=== PATIENT | male | born 1980 | race Caucasian/White ===

== ENCOUNTER 2018-04-14 18:22 | Inpatient (IN) | payer OTHER ==
[2018-04-14 18:40] VITALS: BMI 24.4
--- NOTE | 2018-04-14 19:27 | C.PDOC ---
History Of Present Illness 37 y/o male brought to ED after he went to Dr. Wallace for feeling palpitations and was found to be in rapid Afib 140 -180 bpm. Patient was administered 20mg Cardizem IV by paramedics. Denies fever, chills, nausea, or vomiting. Time Seen by Provider: 04/14/18 19:26 Chief Complaint (Nursing): Palpitations History Per: Patient History/Exam Limitations: no limitations Onset/Duration Of Symptoms: Hrs Current Symptoms Are (Timing): Still Present Associated Symptoms: Dizziness. denies: Chest Pain Quality Of Symptoms: Irregular Heart Rate Severity: Moderate Pain Scale Rating Of: 4 Exacerbating Factor(s): Pos: None Recent travel outside of the [place]: No Additional History Per: Patient Past Medical History Reviewed: Historical Data, Nursing Documentation, Vital Signs Vital Signs: Last Vital Signs Temp 98.2 F 04/14/18 18:25 Pulse 96 H 04/14/18 18:25 Resp 18 04/14/18 18:25 BP 114/72 04/14/18 18:25 Pulse Ox 100 04/14/18 19:49 - Medical History PMH: No Chronic Diseases Surgical History: Appendectomy ("when i was 19") Family History: States: No Known Family Hx - Social History Hx Alcohol Use: No Hx Substance Use: Yes - Immunization History Hx Tetanus Toxoid Vaccination: No Hx Influenza Vaccination: No Hx Pneumococcal Vaccination: No Review Of Systems Constitutional: Negative for: Fever, Chills ENT: Negative for: Throat Pain Cardiovascular: Positive for: Palpitations. Negative for: Chest Pain Respiratory: Negative for: Shortness of Breath Gastrointestinal: Negative for: Nausea, Vomiting, Abdominal Pain, Diarrhea Skin: Negative for: Rash Neurological: Negative for: Weakness, Numbness Psych: Negative for: Anxiety Physical Exam - Physical Exam Appears: Non-toxic, No Acute Distress Skin: Warm, Dry Head: Normacephalic Eye(s): bilateral: Normal Inspection Oral Mucosa: Moist Neck: Trachea Midline, Supple Chest: Symmetrical Respiratory: No Rales, No Rhonchi, No Wheezing Gastrointestinal/Abdominal: Soft, No Tenderness, No Distention Back: Normal Inspection Extremity: Normal ROM, No Pedal Edema Extremity: Bilateral: Atraumatic, Normal Color And Temperature, Normal ROM Pulses: Left Dorsalis Pedis: Normal, Right Dorsalis Pedis: Normal Neurological/Psych: Oriented x3, Normal Speech (Speaking in full sentences ), Normal Cognition Gait: Steady ED Course And Treatment - Laboratory Results Result Diagrams: 04/14/18 19:20 04/14/18 19:20 O2 Sat by Pulse Oximetry: 100 (RA) Pulse Ox Interpretation: Normal Progress Note: Ordered EKG, bloodwork, CXR, and Urinalysis. Disposition Discussed With Dr.: Tone Guillermo Comment: acceptd the pt on hisservice and took over the care at 8:22 PM Doctor Will See Patient In The: Hospital Counseled Patient/Family Regarding: Studies Performed, Diagnosis - Disposition Disposition: HOSPITALIZED Disposition Time: 19:27 Condition: FAIR Forms: [facility] (Italian) - POA Present On Arrival: None - Clinical Impression Clinical Impression: Palpitations, New onset a-fib - Scribe Statement The provider has reviewed the documentation as recorded by the Scribe Mendez Molina All medical record entries made by the Scribe were at my direction and personally dictated by me. I have reviewed the chart and agree that the record accurately reflects my personal performance of the history, physical exam, medical decision making, and the department course for this patient. I have also personally directed, reviewed, and agree with the discharge instructions and disposition. Decision To Admit - Pt Status Changed To: Hospital Disposition Of: Inpatient - Admit Certification Admit to Inpatient:: After my assessment, the patient will require hospitalization for at least two midnights. This is because of the severity of symptoms shown, intensity of services needed, and/or the medical risk in this patient being treated as an outpatient. - InPatient: Physician Admission Certification: I certify that this patient requires 2 or more midnights of care for the following reason:: After my assessment, the patient will require hospitalization for at least two midnights. This is because of the severity of symptoms shown, intensity of services needed, and/or the medical risk in this patient being treated as an outpatient. - . Bed Request Type: Telemetry Admitting Physician: Tone Guillermo Patient Diagnosis: Palpitations, New onset a-fib
[2018-04-14 19:37] LABS: BASO % 0.5 % (0.0-2.0); EOS % 0.7 % (0.0-4.0); HEMOGLOBIN 14.7 g/dL (12.0-18.0); LYMPH # 2.7 K/uL (1.0-4.3); LYMPH % 40.4 % (20.0-40.0); MEAN CELL VOLUME 84.6 fL (80.0-94.0); MEAN CORPUSCULAR HEMOGLOBIN 29.1 pg (27.0-31.0); MEAN CORPUSCULAR HGB CONC 34.4 g/dL (33.0-37.0); MEAN PLATELET VOLUME 8.5 fL (7.2-11.7); MONO # 0.6 K/uL (0.0-0.8); MONO % 8.8 % (0.0-10.0); NEUT # 3.3 K/uL (1.8-7.0); NEUT % 49.6 % (50.0-75.0); NRBC % 0.2 % (0.0-2.0); RBC 5.06 Mil/uL (4.40-5.90); RED CELL DISTRIBUTION WIDTH 14.4 % (11.5-14.5); WHITE BLOOD COUNT 6.7 K/uL (4.8-10.8)
[2018-04-14 19:41] LABS: INR 1.2; PROTHROMBIN TIME 13.1 SECONDS (9.7-12.2)
[2018-04-14 19:48] LABS: SQUAMOUS EPITHIAL < 1 /hpf (0-5); URINE BILIRUBIN NEGATIVE (NEGATIVE); URINE BLOOD NEGATIVE (NEGATIVE); URINE CLARITY Clear (Clear); URINE COLOR Yellow (YELLOW); URINE GLUCOSE (UA) NORMAL (Normal); URINE LEUKOCYTE ESTERASE NEG Leu/uL (Negative); URINE PROTEIN NEGATIVE (NEGATIVE); URINE UROBILINOGEN NORMAL mg/dL (0.2-1.0)
[2018-04-14] MEDS ORDERED: Enoxaparin 40 mg Syringe SC STA (19:48)
[2018-04-14 19:49] LABS: ALB/GLOB RATIO 1.6 (1.0-2.1); ALBUMIN 4.4 g/dL (3.5-5.0); ALT/SGPT 23 U/L (21-72); AST/SGOT 22 U/L (17-59); BLOOD UREA NITROGEN 13 mg/dL (9-20); CALCIUM 9.1 mg/dl (8.6-10.4); GFR AFRICAN-AMERICAN > 60; GFR NON-AFRICAN AMERICAN > 60
[2018-04-14 20:00] LABS: CK-MB 2.03 ng/mL (0.0-3.38)
[2018-04-14] MEDS ORDERED: Enoxaparin 80 mg Syringe ONE (20:19)
[2018-04-14 20:40] LABS: BARBITURATES, UR NEGATIVE (NEGATIVE); BENZODIAZEPINES, UR NEGATIVE (NEGATIVE); OPIATES, UR NEGATIVE (NEGATIVE); PHENCYCLIDINE, UR NEGATIVE (NEGATIVE)
--- NOTE | 2018-04-14 21:09 | CP.PCM.HP ---
Present on Admission - Present on Admission Any Indicators Present on Admission: No Past Patient History - Past Social History Smoking Status: Light Smoker < 10 Cigarettes Daily - GASTROINTESTINAL Other/Comment: "i have gastric issues but i take over the counter meds for it " - PSYCHIATRIC Hx Substance Use: Yes - SURGICAL HISTORY Hx Appendectomy: Yes ("when i was 19") Meds Allergies/Adverse Reactions: Allergies Allergy/AdvReac Type Severity Reaction Status Date / Time Penicillins Allergy Verified 04/14/18 18:35 Physical Exam - Constitutional Appears: Well - Head Exam Head Exam: ATRAUMATIC, NORMAL INSPECTION, NORMOCEPHALIC - Eye Exam Eye Exam: EOMI, Normal appearance, PERRL Pupil Exam: NORMAL ACCOMODATION, PERRL - ENT Exam ENT Exam: Mucous Membranes Moist, Normal Exam - Neck Exam Neck exam: Positive for: Normal Inspection - Respiratory Exam Respiratory Exam: Decreased Breath Sounds - Cardiovascular Exam Cardiovascular Exam: REGULAR RHYTHM, +S1, +S2 - GI/Abdominal Exam GI & Abdominal Exam: Diminished Bowel Sounds, Soft - Rectal Exam Rectal Exam: Deferred Results - Vital Signs Recent Vital Signs: Last Vital Signs Temp 98.2 F 04/14/18 18:25 Pulse 122 H 04/14/18 20:15 Resp 24 04/14/18 20:15 BP 114/72 04/14/18 18:25 Pulse Ox 100 04/14/18 20:26 - Labs Result Diagrams: 04/15/18 10:16 04/15/18 10:16 Labs: Laboratory Results - last 24 hr 04/14/18 04/14/18 04/14/18 19:20 19:20 19:20 WBC 6.7 RBC 5.06 Hgb 14.7 Hct 42.8 MCV 84.6 MCH 29.1 MCHC 34.4 RDW 14.4 Plt Count 209 MPV 8.5 Neut % (Auto) 49.6 L Lymph % (Auto) 40.4 H [place] % (Auto) 8.8 Eos % (Auto) 0.7 Baso % (Auto) 0.5 Neut # (Auto) 3.3 Lymph # (Auto) 2.7 [place] # (Auto) 0.6 Eos # (Auto) 0.0 Baso # (Auto) 0.0 PT 13.1 H INR 1.2 APTT 35 H Sodium 141 Potassium 3.8 Chloride 104 Carbon Dioxide 27 Anion Gap 14 BUN 13 Creatinine 1.1 Est GFR ( Amer) > 60 Est GFR (Non-Af Amer) > 60 Random Glucose 89 Calcium 9.1 Total Bilirubin 1.0 AST 22 ALT 23 Alkaline Phosphatase 43 CK-MB (Mass) 2.03 Troponin I < 0.0120 Total Protein 7.2 Albumin 4.4 Globulin 2.8 Albumin/Globulin Ratio 1.6 TSH 3rd Generation 1.12 Urine Color Urine Clarity Urine pH Ur Specific [place] Urine Protein Urine Glucose (UA) Urine Ketones Urine Blood Urine Nitrate Urine Bilirubin Urine Urobilinogen Ur Leukocyte Esterase Urine WBC (Auto) Urine RBC (Auto) Ur Squamous Epith Cells Urine Opiates Screen Urine Methadone Screen Ur Barbiturates Screen Ur Phencyclidine Scrn Ur Amphetamines Screen U Benzodiazepines Scrn U Oth Cocaine Metabols U Cannabinoids Screen 04/14/18 04/14/18 19:42 20:11 WBC RBC Hgb Hct MCV MCH MCHC RDW Plt Count MPV Neut % (Auto) Lymph % (Auto) [place] % (Auto) Eos % (Auto) Baso % (Auto) Neut # (Auto) Lymph # (Auto) [place] # (Auto) Eos # (Auto) Baso # (Auto) PT INR APTT Sodium Potassium Chloride Carbon Dioxide Anion Gap BUN Creatinine Est GFR ( Amer) Est GFR (Non-Af Amer) Random Glucose Calcium Total Bilirubin AST ALT Alkaline Phosphatase CK-MB (Mass) Troponin I Total Protein Albumin Globulin Albumin/Globulin Ratio TSH 3rd Generation Urine Color Yellow Urine Clarity Clear Urine pH 6.0 Ur Specific [place] 1.013 Urine Protein Negative Urine Glucose (UA) Normal Urine Ketones Negative Urine Blood Negative Urine Nitrate Negative Urine Bilirubin Negative Urine Urobilinogen Normal Ur Leukocyte Esterase Neg Urine WBC (Auto) < 1 Urine RBC (Auto) < 1 Ur Squamous Epith Cells < 1 Urine Opiates Screen Negative Urine Methadone Screen Negative Ur Barbiturates Screen Negative Ur Phencyclidine Scrn Negative Ur Amphetamines Screen Positive H U Benzodiazepines Scrn Negative U Oth Cocaine Metabols Negative U Cannabinoids Screen Negative Assessment & Plan - Assessment and Plan (Free Text) Plan: Patient has a atrial fibrillation and he engaged patient urine screen is positive for amphetamine Patient is on diltiazem The rate is controlled Follow-up with the cardiology No chest pain Patient is for ICU As ordered
[2018-04-14] MEDS: Aspirin 325 mg EC Tablets PO SCH (23:52)
[2018-04-15 03:58] LABS: CK-MB 1.51 ng/mL (0.0-3.38)
--- NOTE | 2018-04-15 07:38 | CP.PCM.PN ---
Subjective - Date & Time of Evaluation Date of Evaluation: 04/15/18 Time of Evaluation: 07:38 - Subjective Subjective: Internal Medicine Progress Note - Dr Jean Claude Guillermo Service Patient seen and examined at bedside. Per nursing no acute events overnight. Patient was sent to the ED from his PMD's office. Patient stated that he has been experiencing palpitations for the past 2 days which led him to see his PMD. He was found to be in Afib with RVR. Currently he states that the palpitations have improved. He reports feeling lethargic. Denies headaches, dizziness, cp, sob, abdominal pain, urinary symptoms. Objective - Vital Signs/Intake and Output Vital Signs (last 24 hours): Temp Pulse Resp BP Pulse Ox 98.0 F 85 18 92/54 L 97 04/15/18 03:29 04/15/18 07:01 04/15/18 07:01 04/15/18 07:01 04/15/18 07:01 - Medications Medications: Current Medications Aspirin (Ecotrin) 325 mg PO DAILY [facility] Last Admin: 04/14/18 23:52 Dose: 325 mg Diltiazem HCl (Cardizem) 30 mg PO Q6 [facility] Last Admin: 04/15/18 06:00 Dose: 30 mg Enoxaparin Sodium (Lovenox) 80 mg SC Q12 [facility] Metoprolol Tartrate (Lopressor) 25 mg PO BID [facility] Last Admin: 04/15/18 01:50 Dose: 25 mg Pantoprazole Sodium (Protonix Ec Tab) 40 mg PO DAILY [facility] - Labs Labs: 04/14/18 19:20 04/14/18 19:20 PT 13.1 SECONDS (9.7-12.2) H 04/14/18 19:20 INR 1.2 04/14/18 19:20 APTT 35 SECONDS (21-34) H 04/14/18 19:20 - Constitutional Appears: Non-toxic, No Acute Distress - Head Exam Head Exam: ATRAUMATIC, NORMAL INSPECTION, NORMOCEPHALIC - Eye Exam Eye Exam: EOMI, Normal appearance Pupil Exam: NORMAL ACCOMODATION - ENT Exam ENT Exam: Mucous Membranes Moist - Neck Exam Neck Exam: Full ROM - Respiratory Exam Respiratory Exam: Clear to Ausculation Bilateral, NORMAL BREATHING PATTERN. absent: Rales, Rhonchi, Wheezes - Cardiovascular Exam Cardiovascular Exam: Irregular Rhythm, +S1, +S2 - GI/Abdominal Exam GI & Abdominal Exam: Soft, Normal Bowel Sounds. absent: Guarding, Rigid, Tenderness - Rectal Exam Rectal Exam: Deferred - Extremities Exam Extremities Exam: Full ROM, Normal Capillary Refill, Normal Inspection. absent : Calf Tenderness, Tenderness - Back Exam Back Exam: NORMAL INSPECTION - Neurological Exam Neurological Exam: Alert, Awake, CN II-XII Intact, Oriented x3 - Psychiatric Exam Psychiatric exam: Normal Affect, Normal Mood - Skin Skin Exam: Dry, Normal Color, Warm Assessment and Plan - Assessment and Plan (Free Text) Assessment: A/P: Patient is a 37 year old male with no significant past medical history who presented to the ED in Afib with RVR. Paramedics gave him Cardizem 20mg IVP. Patient admitted to telemetry for observation, New Onset Afib with RVR -Stable, afebrile -Will monitor on telemetry -EKG this morning showed Afib, HR 94 -Metoprolol 50mg PO BID and Cardizem 30mg PO Q6H for rate control -Lovenox 80 mg SC Q12H -[id number] - 0 HASBLED - 0 -Continue ASA 325mg PO daily -Troponins negative x 2, third troponin pending -TSH was normal, f/u hgA1C, lipid panel -UTOX positive for amphetamines ( of note, patient states that he has been drinking Kratom tea for weight loss for 2 weeks, stopped 3 days ago) -Echocardiogram ordered, f/u results -Cardiology on consult, help appreciated GI/DVT ppx: -Protonix 40mg PO daily -Lovenox 80mg SC Q12H Plan discussed with Dr Eagle Lauren DO PGY-2
[2018-04-15] MEDS: Pantoprazole 40 mg EC Tab PO SCH (10:07)
[2018-04-15] MEDS: Aspirin 325 mg EC Tablets PO SCH (10:08)
[2018-04-15] MEDS: Enoxaparin 80 mg Syringe SC SCH ×2 (10:15→23:00)
[2018-04-15 10:34] LABS: BASO % 0.8 % (0.0-2.0); EOS # 0.1 K/uL (0.0-0.7); EOS % 1.2 % (0.0-4.0); LYMPH # 2.2 K/uL (1.0-4.3); LYMPH % 40.3 % (20.0-40.0); MEAN CELL VOLUME 83.1 fL (80.0-94.0); MEAN CORPUSCULAR HEMOGLOBIN 28.7 pg (27.0-31.0); MEAN CORPUSCULAR HGB CONC 34.5 g/dL (33.0-37.0); MEAN PLATELET VOLUME 9.1 fL (7.2-11.7); MONO # 0.5 K/uL (0.0-0.8); MONO % 9.8 % (0.0-10.0); NEUT # 2.6 K/uL (1.8-7.0); NEUT % 47.9 % (50.0-75.0); NRBC % 0.1 % (0.0-2.0); RBC 5.23 Mil/uL (4.40-5.90); RED CELL DISTRIBUTION WIDTH 13.9 % (11.5-14.5); WHITE BLOOD COUNT 5.5 K/uL (4.8-10.8)
[2018-04-15 10:47] LABS: LDL CHOLESTEROL 110 mg/dL (0-129)
[2018-04-15 10:48] LABS: ALB/GLOB RATIO 1.4 (1.0-2.1); ALT/SGPT 25 U/L (21-72); AST/SGOT 25 U/L (17-59); BLOOD UREA NITROGEN 12 mg/dL (9-20); CALCIUM 8.9 mg/dl (8.6-10.4); GFR AFRICAN-AMERICAN > 60; GFR NON-AFRICAN AMERICAN > 60; HDL CHOLESTEROL 22 mg/dL (30-70)
--- NOTE | 2018-04-15 11:37 | RAD ---
Date of service: 04/14/2018 PROCEDURE: CHEST RADIOGRAPH, 1 VIEW HISTORY: chest pain COMPARISON: None available. FINDINGS: LUNGS: Clear. PLEURA: No pneumothorax or pleural fluid seen. CARDIOVASCULAR: Normal. OSSEOUS STRUCTURES: No significant abnormalities. VISUALIZED UPPER ABDOMEN: Normal. OTHER FINDINGS: None. IMPRESSION: No active disease.
--- NOTE | 2018-04-15 11:53 | CP.PCM.PN ---
Subjective - Date & Time of Evaluation Date of Evaluation: 04/15/18 Time of Evaluation: 11:15 - Subjective Subjective: clinically same Objective - Vital Signs/Intake and Output Vital Signs (last 24 hours): Temp Pulse Resp BP Pulse Ox 98.0 F 103 H 20 102/72 98 04/15/18 03:29 04/15/18 10:03 04/15/18 10:03 04/15/18 10:07 04/15/18 10:03 - Medications Medications: Current Medications Aspirin (Ecotrin) 325 mg PO DAILY [facility] Last Admin: 04/15/18 10:08 Dose: 325 mg Diltiazem HCl (Cardizem) 30 mg PO Q6 [facility] Last Admin: 04/15/18 06:00 Dose: 30 mg Enoxaparin Sodium (Lovenox) 80 mg SC Q12 [facility] Last Admin: 04/15/18 10:15 Dose: 80 mg Metoprolol Tartrate (Lopressor) 25 mg PO BID [facility] Last Admin: 04/15/18 10:07 Dose: 25 mg Pantoprazole Sodium (Protonix Ec Tab) 40 mg PO DAILY [facility] Last Admin: 04/15/18 10:07 Dose: 40 mg - Labs Labs: 04/15/18 10:16 04/15/18 10:16 PT 13.1 SECONDS (9.7-12.2) H 04/14/18 19:20 INR 1.2 04/14/18 19:20 APTT 35 SECONDS (21-34) H 04/14/18 19:20 - Constitutional Appears: Well - Head Exam Head Exam: ATRAUMATIC, NORMAL INSPECTION, NORMOCEPHALIC - Eye Exam Eye Exam: EOMI, Normal appearance, PERRL Pupil Exam: NORMAL ACCOMODATION, PERRL - ENT Exam ENT Exam: Mucous Membranes Moist, Normal Exam - Neck Exam Neck Exam: Full ROM, Normal Inspection. absent: Lymphadenopathy - Respiratory Exam Respiratory Exam: Decreased Breath Sounds - Cardiovascular Exam Cardiovascular Exam: REGULAR RHYTHM, +S1, +S2 - GI/Abdominal Exam GI & Abdominal Exam: Soft, Diminished Bowel Sounds - Rectal Exam Rectal Exam: Deferred
--- NOTE | 2018-04-15 12:41 | CP.PCM.CON ---
History of Present Illness - History of Present Illness History of Present Illness: 37 y/o male brought to ED after he went to Dr. Wallace for feeling palpitations and was found to be in rapid Afib 140 -180 bpm. Patient was administered 20mg Cardizem IV by paramedics. Denies fever, chills, nausea, or vomiting. No Angina No clinical CHF Works as a [employer] 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 + amphetamine No other medical or surgical hx except mild GERD Review of Systems - Review of Systems All systems: reviewed and no additional remarkable complaints except Past Patient History - Past Medical History & Family History Past Medical History?: Yes - Past Social History Smoking Status: Current Some Days Smoker - MUSCULOSKELETAL/RHEUMATOLOGICAL Hx Falls: No - GASTROINTESTINAL Other/Comment: "i have gastric issues but i take over the counter meds for it " - PSYCHIATRIC Hx Substance Use: Yes - SURGICAL HISTORY Hx Appendectomy: Yes ("when i was 19") - ANESTHESIA Hx Anesthesia: Yes Hx Anesthesia Reactions: No Hx Malignant Hyperthermia: No Meds Allergies/Adverse Reactions: Allergies Allergy/AdvReac Type Severity Reaction Status Date / Time Penicillins Allergy Verified 04/14/18 18:35 - Medications Medications: Current Medications Aspirin (Ecotrin) 325 mg PO DAILY [facility] Last Admin: 04/15/18 10:08 Dose: 325 mg Diltiazem HCl (Cardizem) 30 mg PO Q6 [facility] Last Admin: 04/15/18 06:00 Dose: 30 mg Enoxaparin Sodium (Lovenox) 80 mg SC Q12 [facility] Last Admin: 04/15/18 10:15 Dose: 80 mg Metoprolol Tartrate (Lopressor) 25 mg PO BID [facility] Last Admin: 04/15/18 10:07 Dose: 25 mg Pantoprazole Sodium (Protonix Ec Tab) 40 mg PO DAILY [facility] Last Admin: 04/15/18 10:07 Dose: 40 mg Pneumococcal Polyvalent Vaccine (Pneumovax 23 Vaccine) 0.5 ml IM .ONCE ONE Stop: 04/18/18 10:01 Physical Exam - Constitutional Appears: Well - Head Exam Head Exam: ATRAUMATIC, NORMAL INSPECTION, NORMOCEPHALIC - Eye Exam Eye Exam: EOMI, Normal appearance, PERRL - ENT Exam ENT Exam: Mucous Membranes Moist, Normal Oropharynx - Neck Exam Neck exam: Positive for: Full Rom, Normal Inspection - Respiratory Exam Respiratory Exam: Clear to Auscultation Bilateral, NORMAL BREATHING PATTERN - Cardiovascular Exam Cardiovascular Exam: Irregular Rhythm, +S1, +S2. absent: +S4, Systolic Murmur - GI/Abdominal Exam GI & Abdominal Exam: Normal Bowel Sounds, Soft. absent: Tenderness - Extremities Exam Extremities exam: Positive for: calf tenderness. Negative for: normal inspection - Neurological Exam Neurological exam: Alert, Oriented x3 - Psychiatric Exam Psychiatric exam: Normal Affect, Normal Mood - Skin Skin Exam: Normal Color, Warm Results - Vital Signs Recent Vital Signs: Last Vital Signs Temp 98.0 F 04/15/18 03:29 Pulse 103 H 04/15/18 10:03 Resp 20 04/15/18 10:03 BP 102/72 04/15/18 10:07 Pulse Ox 98 04/15/18 10:03 - Labs Result Diagrams: 04/15/18 10:16 04/15/18 10:16 Labs: Laboratory Results - last 24 hr 04/14/18 04/14/18 04/14/18 19:20 19:20 19:20 WBC 6.7 RBC 5.06 Hgb 14.7 Hct 42.8 MCV 84.6 MCH 29.1 MCHC 34.4 RDW 14.4 Plt Count 209 MPV 8.5 Neut % (Auto) 49.6 L Lymph % (Auto) 40.4 H [place] % (Auto) 8.8 Eos % (Auto) 0.7 Baso % (Auto) 0.5 Neut # (Auto) 3.3 Lymph # (Auto) 2.7 [place] # (Auto) 0.6 Eos # (Auto) 0.0 Baso # (Auto) 0.0 PT 13.1 H INR 1.2 APTT 35 H Sodium 141 Potassium 3.8 Chloride 104 Carbon Dioxide 27 Anion Gap 14 BUN 13 Creatinine 1.1 Est GFR ( Amer) > 60 Est GFR (Non-Af Amer) > 60 Random Glucose 89 Hemoglobin A1c Calcium 9.1 Phosphorus Magnesium Total Bilirubin 1.0 AST 22 ALT 23 Alkaline Phosphatase 43 Total Creatine Kinase CK-MB (Mass) 2.03 Troponin I < 0.0120 Total Protein 7.2 Albumin 4.4 Globulin 2.8 Albumin/Globulin Ratio 1.6 Triglycerides Cholesterol LDL Cholesterol Direct HDL Cholesterol TSH 3rd Generation 1.12 Urine Color Urine Clarity Urine pH Ur Specific [place] Urine Protein Urine Glucose (UA) Urine Ketones Urine Blood Urine Nitrate Urine Bilirubin Urine Urobilinogen Ur Leukocyte Esterase Urine WBC (Auto) Urine RBC (Auto) Ur Squamous Epith Cells Urine Opiates Screen Urine Methadone Screen Ur Barbiturates Screen Ur Phencyclidine Scrn Ur Amphetamines Screen U Benzodiazepines Scrn U Oth Cocaine Metabols U Cannabinoids Screen 04/14/18 04/14/18 04/15/18 19:42 20:11 03:21 WBC RBC Hgb Hct MCV MCH MCHC RDW Plt Count MPV Neut % (Auto) Lymph % (Auto) [place] % (Auto) Eos % (Auto) Baso % (Auto) Neut # (Auto) Lymph # (Auto) [place] # (Auto) Eos # (Auto) Baso # (Auto) PT INR APTT Sodium Potassium Chloride Carbon Dioxide Anion Gap BUN Creatinine Est GFR ( Amer) Est GFR (Non-Af Amer) Random Glucose Hemoglobin A1c Calcium Phosphorus Magnesium Total Bilirubin AST ALT Alkaline Phosphatase Total Creatine Kinase 64 CK-MB (Mass) 1.51 Troponin I < 0.0120 Total Protein Albumin Globulin Albumin/Globulin Ratio Triglycerides Cholesterol LDL Cholesterol Direct HDL Cholesterol TSH 3rd Generation Urine Color Yellow Urine Clarity Clear Urine pH 6.0 Ur Specific [place] 1.013 Urine Protein Negative Urine Glucose (UA) Normal Urine Ketones Negative Urine Blood Negative Urine Nitrate Negative Urine Bilirubin Negative Urine Urobilinogen Normal Ur Leukocyte Esterase Neg Urine WBC (Auto) < 1 Urine RBC (Auto) < 1 Ur Squamous Epith Cells < 1 Urine Opiates Screen Negative Urine Methadone Screen Negative Ur Barbiturates Screen Negative Ur Phencyclidine Scrn Negative Ur Amphetamines Screen Positive H U Benzodiazepines Scrn Negative U Oth Cocaine Metabols Negative U Cannabinoids Screen Negative 04/15/18 04/15/18 04/15/18 10:16 10:16 10:16 WBC 5.5 RBC 5.23 Hgb 15.0 Hct 43.4 MCV 83.1 MCH 28.7 MCHC 34.5 RDW 13.9 Plt Count 229 MPV 9.1 Neut % (Auto) 47.9 L Lymph % (Auto) 40.3 H [place] % (Auto) 9.8 Eos % (Auto) 1.2 Baso % (Auto) 0.8 Neut # (Auto) 2.6 Lymph # (Auto) 2.2 [place] # (Auto) 0.5 Eos # (Auto) 0.1 Baso # (Auto) 0.0 PT INR APTT Sodium 140 Potassium 3.9 Chloride 105 Carbon Dioxide 22 Anion Gap 17 BUN 12 Creatinine 0.8 Est GFR ( Amer) > 60 Est GFR (Non-Af Amer) > 60 Random Glucose 118 H Hemoglobin A1c 5.2 Calcium 8.9 Phosphorus 2.9 Magnesium 2.0 Total Bilirubin 0.7 AST 25 ALT 25 Alkaline Phosphatase 33 L D Total Creatine Kinase CK-MB ([facility]) Troponin I Total Protein 6.9 Albumin 4.0 Globulin 2.9 Albumin/Globulin Ratio 1.4 Triglycerides 177 H Cholesterol 153 LDL Cholesterol Direct 110 HDL Cholesterol 22 L TSH 3rd Generation Urine Color Urine Clarity Urine pH Ur Specific [place] Urine Protein Urine Glucose (UA) Urine Ketones Urine Blood Urine Nitrate Urine Bilirubin Urine Urobilinogen Ur Leukocyte Esterase Urine WBC (Auto) Urine RBC (Auto) Ur Squamous Epith Cells Urine Opiates Screen Urine Methadone Screen Ur Barbiturates Screen Ur Phencyclidine Scrn Ur Amphetamines Screen U Benzodiazepines Scrn U Oth Cocaine Metabols U Cannabinoids Screen 04/15/18 11:50 WBC RBC Hgb Hct MCV MCH MCHC RDW Plt Count MPV Neut % (Auto) Lymph % (Auto) [place] % (Auto) Eos % (Auto) Baso % (Auto) Neut # (Auto) Lymph # (Auto) [place] # (Auto) Eos # (Auto) Baso # (Auto) PT INR APTT Sodium Potassium Chloride Carbon Dioxide Anion Gap BUN Creatinine Est GFR ( Amer) Est GFR (Non-Af Amer) Random Glucose Hemoglobin A1c Calcium Phosphorus Magnesium Total Bilirubin AST ALT Alkaline Phosphatase Total Creatine Kinase 57 CK-MB ([facility]) Troponin I < 0.0120 Total Protein Albumin Globulin Albumin/Globulin Ratio Triglycerides Cholesterol LDL Cholesterol Direct HDL Cholesterol TSH 3rd Generation Urine Color Urine Clarity Urine pH Ur Specific [place] Urine Protein Urine Glucose (UA) Urine Ketones Urine Blood Urine Nitrate Urine Bilirubin Urine Urobilinogen Ur Leukocyte Esterase Urine WBC (Auto) Urine RBC (Auto) Ur Squamous Epith Cells Urine Opiates Screen Urine Methadone Screen Ur Barbiturates Screen Ur Phencyclidine Scrn Ur Amphetamines Screen U Benzodiazepines Scrn U Oth Cocaine Metabols U Cannabinoids Screen Assessment & Plan - Assessment and Plan (Free Text) Assessment: Symptomatic palpitation AFIB recent onset ? triggered by dehydration/amphetamines Plan: 1. Checks TSH 2, cont cardizem, inc metoprolol to 50 BID 3. ASA 325 daily with GI prophylaxis 4. F/U echo. 5. Monitor in TELE
[2018-04-15 12:54] LABS: CK-MB 1.16 ng/mL (0.0-3.38)
--- NOTE | 2018-04-16 01:12 | CARD ---
APPROVED REPORT Date of service: 04/14/2018 EKG Measurement Heart [id number] <Conclusion> Atrial fibrillation Abnormal ECG
[2018-04-16 06:31] LABS: BASO % 0.6 % (0.0-2.0); EOS # 0.1 K/uL (0.0-0.7); EOS % 1.8 % (0.0-4.0); HEMOGLOBIN 14.9 g/dL (12.0-18.0); LYMPH # 3.8 K/uL (1.0-4.3); MEAN CELL VOLUME 83.4 fL (80.0-94.0); MEAN CORPUSCULAR HEMOGLOBIN 28.6 pg (27.0-31.0); MEAN CORPUSCULAR HGB CONC 34.3 g/dL (33.0-37.0); MEAN PLATELET VOLUME 9.2 fL (7.2-11.7); MONO # 0.7 K/uL (0.0-0.8); MONO % 8.7 % (0.0-10.0); NEUT # 3.1 K/uL (1.8-7.0); NEUT % 39.9 % (50.0-75.0); NRBC % 0.1 % (0.0-2.0); RBC 5.23 Mil/uL (4.40-5.90); RED CELL DISTRIBUTION WIDTH 13.9 % (11.5-14.5); WHITE BLOOD COUNT 7.7 K/uL (4.8-10.8)
[2018-04-16 06:54] LABS: LDL CHOLESTEROL 115 mg/dL (0-129)
[2018-04-16 06:55] LABS: ALB/GLOB RATIO 1.3 (1.0-2.1); ALBUMIN 3.5 g/dL (3.5-5.0); ALT/SGPT 27 U/L (21-72); AST/SGOT 16 U/L (17-59); BLOOD UREA NITROGEN 11 mg/dL (9-20); CALCIUM 8.3 mg/dl (8.6-10.4); GFR AFRICAN-AMERICAN > 60; GFR NON-AFRICAN AMERICAN > 60; HDL CHOLESTEROL 24 mg/dL (30-70)
[2018-04-16] MEDS ORDERED: Potassium Chloride 20 mEq ER Tab PO ONE (06:57)
--- NOTE | 2018-04-16 07:01 | CP.PCM.PN ---
Subjective - Date & Time of Evaluation Date of Evaluation: 04/16/18 Time of Evaluation: 07:00 - Subjective Subjective: Internal Medicine Progress Note - Dr Jean Claude Guillermo Service Patient seen and examined at bedside. Per nursing, no acute events overnight. Patient is resting comfortably. States that he feels increasing lethargic and dizzy. Tolerating diet. Palpitations improved. Denies headaches, cp, sob, abdominal pain, urinary symptoms. Objective - Vital Signs/Intake and Output Vital Signs (last 24 hours): Temp Pulse Resp BP Pulse Ox 98.5 F 103 H 20 107/62 97 04/16/18 04:00 04/16/18 04:02 04/16/18 04:02 04/16/18 04:02 04/16/18 04:02 Intake and Output: 04/16/18 04/16/18 06:59 18:59 Intake Total 720 Output Total 800 Balance -80 - Medications Medications: Current Medications Aspirin (Ecotrin) 325 mg PO DAILY [facility] Last Admin: 04/15/18 10:08 Dose: 325 mg Diltiazem HCl (Cardizem) 30 mg PO Q6 [facility] Last Admin: 04/16/18 05:30 Dose: 30 mg Enoxaparin Sodium (Lovenox) 80 mg SC Q12 [facility] Last Admin: 04/15/18 23:00 Dose: 80 mg Metoprolol Tartrate (Lopressor) 50 mg PO BID [facility] Last Admin: 04/15/18 17:19 Dose: 50 mg Pantoprazole Sodium (Protonix Ec Tab) 40 mg PO DAILY [facility] Last Admin: 04/15/18 10:07 Dose: 40 mg Pneumococcal Polyvalent Vaccine (Pneumovax 23 Vaccine) 0.5 ml IM .ONCE ONE Stop: 04/18/18 10:01 - Labs Labs: 04/16/18 06:24 04/16/18 06:24 PT 13.1 SECONDS (9.7-12.2) H 04/14/18 19:20 INR 1.2 04/14/18 19:20 APTT 35 SECONDS (21-34) H 04/14/18 19:20 - Additional Findings Additional findings: - Constitutional Appears: Non-toxic, No Acute Distress - Head Exam Head Exam: ATRAUMATIC, NORMAL INSPECTION, NORMOCEPHALIC - Eye Exam Eye Exam: EOMI, Normal appearance Pupil Exam: NORMAL ACCOMODATION - ENT Exam ENT Exam: Mucous Membranes Moist - Neck Exam Neck Exam: Full ROM - Respiratory Exam Respiratory Exam: Clear to Ausculation Bilateral, NORMAL BREATHING PATTERN. absent: Rales, Rhonchi, Wheezes - Cardiovascular Exam Cardiovascular Exam: Irregular Rhythm, +S1, +S2 - GI/Abdominal Exam GI & Abdominal Exam: Soft, Normal Bowel Sounds. absent: Guarding, Rigid, Tenderness - Rectal Exam Rectal Exam: Deferred - Extremities Exam Extremities Exam: Full ROM, Normal Capillary Refill, Normal Inspection. absent : Calf Tenderness, Tenderness - Back Exam Back Exam: NORMAL INSPECTION - Neurological Exam Neurological Exam: Alert, Awake, CN II-XII Intact, Oriented x3 - Psychiatric Exam Psychiatric exam: Normal Affect, Normal Mood - Skin Skin Exam: Dry, Normal Color, Warm Assessment and Plan - Assessment and Plan (Free Text) Assessment: A/P: Patient is a 37 year old male with no significant past medical history who presented to the ED in Afib with RVR. Paramedics gave him Cardizem 20mg IVP. Patient admitted to telemetry for observation, New Onset Afib with RVR -Stable, afebrile -Will monitor on telemetry -EKG showed Afib, HR 94 -Metoprolol 50mg PO BID and Cardizem 30mg PO Q6H for rate control -HR 120-140s and patient intermittently with low BPs, will start Digoxin -Lovenox 80 mg SC Q12H -[id number] - 0 HASBLED - 0 -Continue ASA 325mg PO daily -Troponins negative x 3 -TSH was normal, hgA1C 5.2, lipid panel wnl -UTOX positive for amphetamines (of note, patient states that he has been drinking Kratom tea for weight loss for 2 weeks, stopped 3 days ago) -Echocardiogram ordered, f/u results -Cardiology on consult, help appreciated Tobacco abuse -Patient smokes 5 cig/day since age 15 -Tobacco cessation advised Hypokalemia -Potassium 3.1, repleted -Continue to monitor GI/DVT ppx: -Protonix 40mg PO daily -Lovenox 80mg SC Q12H Plan discussed with Dr Eagle Lauren DO PGY-2
[2018-04-16] MEDS: Pantoprazole 40 mg EC Tab PO SCH (10:00)
[2018-04-16] MEDS: Aspirin 325 mg EC Tablets PO SCH (10:00)
[2018-04-16] MEDS: Enoxaparin 80 mg Syringe SC SCH ×2 (10:35→21:48)
[2018-04-16] MEDS ORDERED: Digoxin 500 mcg/2ml (0.5 mg/2ml) Inj IVP STA (13:29)
--- NOTE | 2018-04-16 14:58 | CARD ---
APPROVED REPORT Date of service: 04/16/2018 EXAM: Two-dimensional and M-mode echocardiogram with Doppler and color Doppler. Other Information Quality : GoodRhythm : INDICATION Atrial Fibrillation Palpitations 2D DIMENSIONS IVSd1.0 (0.7-1.1cm)LVDd4.2 (3.9-5.9cm) PWd0.9 (0.7-1.1cm)LVDs3.1 (2.5-4.0cm) FS (%) 25.6 %LVEF (%)55.0 (>50%) M-Mode DIMENSIONS Left Atrium (MM)3.76 (2.5-4.0cm)IVSd0.71 (0.7-1.1cm) Aortic Root3.72 (2.2-3.7cm)LVDd5.42 (4.0-5.6cm) Aortic Cusp Exc.2.90 (1.5-2.0cm)PWd0.84 (0.7-1.1cm) FS (%) 30 %LVDs3.79 (2.0-3.8cm) LVEF (%)57 (>50%) Mitral Valve MV E Dtgnurcg10.5cm/sE/A ratio0.0 TDI E/Lateral E'0.0E/Medial E'0.0 Tricuspid Valve TR Peak [id number]/sTR Peak [id number] LEFT VENTRICLE The left ventricle is normal size. There is normal left ventricular wall thickness. The left ventricular function is normal. The left ventricular ejection fraction is within the normal range. No regional wall motion abnormalities noted. Suboptimal No left ventricle thrombus noted on this study. There is no ventricular septal defect visualized. There is no left ventricular aneurysm. There is no mass noted in the left ventricle. RIGHT VENTRICLE The right ventricle is normal size. There is normal right ventricular wall thickness. The right ventricular systolic function is normal. ATRIA The left atrium size is normal. The right atrium size is normal. The interatrial septum is intact with no evidence for an atrial septal defect. AORTIC VALVE The aortic valve is normal in structure and function. No aortic regurgitation is present. There is no aortic valvular stenosis. There is no aortic valvular vegetation. MITRAL VALVE The mitral valve is normal in structure and function. There is no evidence of mitral valve prolapse. There is no mitral valve stenosis. Mitral regurgitation is mild. TRICUSPID VALVE The tricuspid valve is normal in structure and function. There is mild tricuspid regurgitation. Right ventricular systolic pressure is estimated at less than 30 mmHg. There is no tricuspid valve prolapse or vegetation. There is no tricuspid valve stenosis. PULMONIC VALVE The pulmonary valve is normal in structure and function. There is no pulmonic valvular regurgitation. There is no pulmonic valvular stenosis. GREAT VESSELS The aortic root is normal in size. The ascending aorta is normal in size. The pulmonary artery is normal. The IVC is normal in size and collapses >50% with inspiration. PERICARDIAL EFFUSION The pericardium appears normal. There is no pleural effusion. <Conclusion> The left ventricular function is normal. The left ventricular ejection fraction is within the normal range. No regional wall motion abnormalities noted. Mitral regurgitation is mild.
[2018-04-16] MEDS: Digoxin 500 mcg/2ml (0.5 mg/2ml) Inj IVP SCH ×2 (17:55→21:48)
[2018-04-16] MEDS: Omega-3-Acid Ethyl Esters 1 GM Cap PO SCH (18:12)
--- NOTE | 2018-04-16 20:54 | CP.PCM.PN ---
Subjective - Date & Time of Evaluation Date of Evaluation: 04/16/18 Time of Evaluation: 12:40 - Subjective Subjective: clinically same Objective - Vital Signs/Intake and Output Vital Signs (last 24 hours): Temp Pulse Resp BP Pulse Ox 98.6 F 133 H 22 94/70 L 98 04/16/18 16:00 04/16/18 17:54 04/16/18 17:54 04/16/18 17:54 04/16/18 17:54 Intake and Output: 04/16/18 04/17/18 18:59 06:59 Intake Total 200 Output Total 250 Balance -50 - Medications Medications: Current Medications Aspirin (Ecotrin) 325 mg PO DAILY [facility] Last Admin: 04/16/18 10:00 Dose: 325 mg Digoxin (Lanoxin) 0.25 mg IVP Q4H [facility] Stop: 04/16/18 21:31 Last Admin: 04/16/18 17:55 Dose: 0.25 mg Digoxin (Lanoxin) 0.25 mg PO DAILY@1800 [facility] Diltiazem HCl (Cardizem) 30 mg PO Q6 [facility] Last Admin: 04/16/18 17:59 Dose: 30 mg Enoxaparin Sodium (Lovenox) 80 mg SC Q12 [facility] Last Admin: 04/16/18 10:35 Dose: 80 mg Metoprolol Tartrate (Lopressor) 50 mg PO BID [facility] Last Admin: 04/16/18 17:59 Dose: 50 mg Vupwk-1-Vtgr Ethyl Esters (Lovaza) 1 gm PO BID [facility] Last Admin: 04/16/18 18:12 Dose: 1 gm Pantoprazole Sodium (Protonix Ec Tab) 40 mg PO DAILY [facility] Last Admin: 04/16/18 10:00 Dose: 40 mg Pneumococcal Polyvalent Vaccine (Pneumovax 23 Vaccine) 0.5 ml IM .ONCE ONE Stop: 04/18/18 10:01 - Labs Labs: 04/16/18 06:24 04/16/18 06:24 PT 13.1 SECONDS (9.7-12.2) H 04/14/18 19:20 INR 1.2 04/14/18 19:20 APTT 35 SECONDS (21-34) H 04/14/18 19:20 - Constitutional Appears: Well - Head Exam Head Exam: ATRAUMATIC, NORMAL INSPECTION, NORMOCEPHALIC - Eye Exam Eye Exam: EOMI, Normal appearance, PERRL Pupil Exam: NORMAL ACCOMODATION, PERRL - ENT Exam ENT Exam: Mucous Membranes Moist, Normal Exam - Neck Exam Neck Exam: Full ROM, Normal Inspection. absent: Lymphadenopathy - Respiratory Exam Respiratory Exam: Decreased Breath Sounds - Cardiovascular Exam Cardiovascular Exam: REGULAR RHYTHM, +S1, +S2 - GI/Abdominal Exam GI & Abdominal Exam: Soft, Diminished Bowel Sounds - Rectal Exam Rectal Exam: Deferred
[2018-04-17 06:19] LABS: BASO % 0.5 % (0.0-2.0); EOS # 0.1 K/uL (0.0-0.7); EOS % 1.3 % (0.0-4.0); HEMOGLOBIN 15.8 g/dL (12.0-18.0); LYMPH # 3.2 K/uL (1.0-4.3); LYMPH % 43.7 % (20.0-40.0); MEAN CELL VOLUME 84.8 fL (80.0-94.0); MEAN CORPUSCULAR HEMOGLOBIN 29.2 pg (27.0-31.0); MEAN CORPUSCULAR HGB CONC 34.4 g/dL (33.0-37.0); MONO # 0.7 K/uL (0.0-0.8); MONO % 9.1 % (0.0-10.0); NEUT # 3.4 K/uL (1.8-7.0); NEUT % 45.4 % (50.0-75.0); NRBC % 0.3 % (0.0-2.0); RBC 5.42 Mil/uL (4.40-5.90); RED CELL DISTRIBUTION WIDTH 14.1 % (11.5-14.5); WHITE BLOOD COUNT 7.4 K/uL (4.8-10.8)
[2018-04-17 07:08] LABS: BLOOD UREA NITROGEN 12 mg/dL (9-20); CALCIUM 8.7 mg/dl (8.6-10.4); GFR AFRICAN-AMERICAN > 60; GFR NON-AFRICAN AMERICAN > 60
[2018-04-17] MEDS: Aspirin 325 mg EC Tablets PO SCH (10:10)
[2018-04-17] MEDS: Pantoprazole 40 mg EC Tab PO SCH (10:10)
[2018-04-17] MEDS: Enoxaparin 80 mg Syringe SC SCH ×2 (10:10→23:25)
[2018-04-17] MEDS: Omega-3-Acid Ethyl Esters 1 GM Cap PO SCH ×2 (10:11→17:56)
--- NOTE | 2018-04-17 10:59 | CP.PCM.PN ---
Subjective - Date & Time of Evaluation Date of Evaluation: 04/17/18 Time of Evaluation: 10:55 - Subjective Subjective: PGY-[address] Guillermo's service Pt seen and examined at bedside. Nursing reports no acute events overnight. Patient found lying in bed sleeping. He admits history of Kratom tea for the past two weeks, but denies other illicit drug use. He denies chest pain, SOB, but admits palpitations and states his "heart is beating fast." Reports tolerating diet and voiding without difficulty. Objective - Vital Signs/Intake and Output Vital Signs (last 24 hours): Temp Pulse Resp BP Pulse Ox 98.5 F 108 H 18 117/70 100 04/17/18 08:00 04/17/18 08:00 04/17/18 08:00 04/17/18 08:00 04/17/18 08:00 Intake and Output: 04/17/18 04/17/18 06:59 18:59 Output Total 801 Balance -801 - Medications Medications: Current Medications Aspirin (Ecotrin) 325 mg PO DAILY [facility] Last Admin: 04/17/18 10:10 Dose: 325 mg Digoxin (Lanoxin) 0.25 mg PO DAILY@1800 [facility] Diltiazem HCl (Cardizem) 30 mg PO Q6 [facility] Last Admin: 04/17/18 05:39 Dose: 30 mg Enoxaparin Sodium (Lovenox) 80 mg SC Q12 [facility] Last Admin: 04/17/18 10:10 Dose: 80 mg Metoprolol Tartrate (Lopressor) 50 mg PO BID [facility] Last Admin: 04/17/18 10:10 Dose: 50 mg Gzbye-6-Njzj Ethyl Esters (Lovaza) 1 gm PO BID [facility] Last Admin: 04/17/18 10:11 Dose: 1 gm Pantoprazole Sodium (Protonix Ec Tab) 40 mg PO DAILY [facility] Last Admin: 04/17/18 10:10 Dose: 40 mg Pneumococcal Polyvalent Vaccine (Pneumovax 23 Vaccine) 0.5 ml IM .ONCE ONE Stop: 04/18/18 10:01 - Labs Labs: 04/17/18 06:11 04/17/18 06:11 PT 13.1 SECONDS (9.7-12.2) H 04/14/18 19:20 INR 1.2 04/14/18 19:20 APTT 35 SECONDS (21-34) H 04/14/18 19:20 - Additional Findings Additional findings: - Constitutional Appears: Non-toxic, No Acute Distress - Head Exam Head Exam: ATRAUMATIC, NORMAL INSPECTION, NORMOCEPHALIC - Eye Exam Eye Exam: EOMI, Normal appearance Pupil Exam: NORMAL ACCOMODATION - ENT Exam ENT Exam: Mucous Membranes Moist - Neck Exam Neck Exam: Full ROM - Respiratory Exam Respiratory Exam: Clear to Ausculation Bilateral, NORMAL BREATHING PATTERN. absent: Rales, Rhonchi, Wheezes - Cardiovascular Exam Cardiovascular Exam: Irregular Rhythm, +S1, +S2 - GI/Abdominal Exam GI & Abdominal Exam: Soft, Normal Bowel Sounds. absent: Guarding, Rigid, Tenderness - Rectal Exam Rectal Exam: Deferred - Extremities Exam Extremities Exam: Full ROM, Normal Capillary Refill, Normal Inspection. absent : Calf Tenderness, Tenderness - Back Exam Back Exam: NORMAL INSPECTION - Neurological Exam Neurological Exam: Alert, Awake, CN II-XII Intact, Oriented x3 - Psychiatric Exam Psychiatric exam: Normal Affect, Normal Mood - Skin Skin Exam: Dry, Normal Color, Warm Assessment and Plan - Assessment and Plan (Free Text) Plan: A/P: Patient is a 37 year old male with no significant past medical history who presented to the ED in Afib with RVR. Paramedics gave him Cardizem 20mg IVP. Patient admitted to telemetry for observation, New Onset Afib with RVR Observe on tele Stable, afebrile EKG (04/16/18) Afib, HR 94, No ST/T wave changes Troponins negative x 3 TSH WNL Lipid Panel: TG 110, LDL 110, HDL 22, T chol 148 A1C: 5.2 UTOX positive for amphetamines (of note, patient states that he has been drinking Kratom tea for weight loss for 2 weeks, stopped 3 days ago) Echo (04/16/18): LV function WNL, EF WNL, No wall motion abnormalities [id number] - 0 HASBLED - 0 Metoprolol 50mg PO BID Cardizem 30mg PO Q6H for rate control Digoxin 0.25mg PO Daily Lovenox 80 mg SC Q12H ASA 325mg PO daily Cardiology on consult, Dr. Lopez, help appreciated - Afib perhaps triggered by amphetamine (Kratom) usage - Continue Rate control agents - Consider outpatient cardioversion if he does not spontaneously convert Low HDL HDL 22 Counseled patient by importance of exercise Can start outpatient Fish oil to improve HDL Tobacco abuse Patient smokes 5 cig/day since age 15 Tobacco cessation advised Hypokalemia Resolved GI/DVT ppx: Protonix 40mg PO daily Lovenox 80mg SC Q12H Pt mobile, SCDs not indicated Tomás Dykes PGY-[address] Guillermo
--- NOTE | 2018-04-17 12:42 | CARD ---
APPROVED REPORT Date of service: 04/15/2018 EKG Measurement Heart [id number] <Conclusion> Atrial fibrillation Abnormal ECG
--- NOTE | 2018-04-17 13:34 | CP.PCM.PN ---
Subjective - Date & Time of Evaluation Date of Evaluation: 04/17/18 Time of Evaluation: 13:30 - Subjective Subjective: Feels better Still in AFIB Rate improved, No CP or CHF No fevers, N/V Objective - Vital Signs/Intake and Output Vital Signs (last 24 hours): Temp Pulse Resp BP Pulse Ox 98.5 F 109 H 18 117/70 100 04/17/18 08:00 04/17/18 10:57 04/17/18 08:00 04/17/18 08:00 04/17/18 08:00 Intake and Output: 04/17/18 04/17/18 06:59 18:59 Output Total 801 Balance -801 - Medications Medications: Current Medications Aspirin (Ecotrin) 325 mg PO DAILY [facility] Last Admin: 04/17/18 10:10 Dose: 325 mg Digoxin (Lanoxin) 0.25 mg PO DAILY@1800 [facility] Diltiazem HCl (Cardizem) 30 mg PO Q6 [facility] Last Admin: 04/17/18 05:39 Dose: 30 mg Enoxaparin Sodium (Lovenox) 80 mg SC Q12 [facility] Last Admin: 04/17/18 10:10 Dose: 80 mg Metoprolol Tartrate (Lopressor) 50 mg PO BID [facility] Last Admin: 04/17/18 10:10 Dose: 50 mg Jxcdq-6-Qynx Ethyl Esters (Lovaza) 1 gm PO BID [facility] Last Admin: 04/17/18 10:11 Dose: 1 gm Pantoprazole Sodium (Protonix Ec Tab) 40 mg PO DAILY [facility] Last Admin: 04/17/18 10:10 Dose: 40 mg Pneumococcal Polyvalent Vaccine (Pneumovax 23 Vaccine) 0.5 ml IM .ONCE ONE Stop: 04/18/18 10:01 - Labs Labs: 04/17/18 06:11 04/17/18 06:11 PT 13.1 SECONDS (9.7-12.2) H 04/14/18 19:20 INR 1.2 04/14/18 19:20 APTT 35 SECONDS (21-34) H 04/14/18 19:20 - Constitutional Appears: No Acute Distress - Head Exam Head Exam: ATRAUMATIC, NORMAL INSPECTION, NORMOCEPHALIC - Eye Exam Eye Exam: EOMI, Normal appearance, PERRL - ENT Exam ENT Exam: Mucous Membranes Moist, Normal Exam - Neck Exam Neck Exam: Full ROM, Normal Inspection - Respiratory Exam Respiratory Exam: Clear to Ausculation Bilateral, NORMAL BREATHING PATTERN - Cardiovascular Exam Cardiovascular Exam: Irregular Rhythm, +S1, +S2. absent: Murmur - GI/Abdominal Exam GI & Abdominal Exam: Normal Bowel Sounds - Extremities Exam Extremities Exam: Full ROM, Normal Inspection - Neurological Exam Neurological Exam: Alert, Awake, Oriented x3 - Psychiatric Exam Psychiatric exam: Normal Affect, Normal Mood - Skin Skin Exam: Normal Color, Warm Assessment and Plan - Assessment and Plan (Free Text) Assessment: New onset AFIB > probably triggered by amphetamine use Given clinically improvement in sx's, low CHADS-VASC score and normal cardiac structure on echo and normal TSH > suggest: cont ASA, DIG, cardizem and metoprolol > D/C planning and outpatient f/u info given to consider cardioversion if does not spontaneously convert.
--- NOTE | 2018-04-17 13:59 | CP.PCM.PN ---
Subjective - Date & Time of Evaluation Date of Evaluation: 04/17/18 Time of Evaluation: 09:15 - Subjective Subjective: clinically same Objective - Vital Signs/Intake and Output Vital Signs (last 24 hours): Temp Pulse Resp BP Pulse Ox 98.5 F 77 18 112/69 100 04/17/18 08:00 04/17/18 12:50 04/17/18 08:00 04/17/18 12:50 04/17/18 08:00 Intake and Output: 04/17/18 04/17/18 06:59 18:59 Output Total 801 Balance -801 - Medications Medications: Current Medications Aspirin (Ecotrin) 325 mg PO DAILY [facility] Last Admin: 04/17/18 10:10 Dose: 325 mg Digoxin (Lanoxin) 0.25 mg PO DAILY@1800 [facility] Diltiazem HCl (Cardizem) 30 mg PO Q6 [facility] Last Admin: 04/17/18 13:00 Dose: 30 mg Enoxaparin Sodium (Lovenox) 80 mg SC Q12 [facility] Last Admin: 04/17/18 10:10 Dose: 80 mg Metoprolol Tartrate (Lopressor) 50 mg PO BID [facility] Last Admin: 04/17/18 10:10 Dose: 50 mg Iuyfx-5-Nbxc Ethyl Esters (Lovaza) 1 gm PO BID [facility] Last Admin: 04/17/18 10:11 Dose: 1 gm Pantoprazole Sodium (Protonix Ec Tab) 40 mg PO DAILY [facility] Last Admin: 04/17/18 10:10 Dose: 40 mg Pneumococcal Polyvalent Vaccine (Pneumovax 23 Vaccine) 0.5 ml IM .ONCE ONE Stop: 04/18/18 10:01 - Labs Labs: 04/17/18 06:11 04/17/18 06:11 PT 13.1 SECONDS (9.7-12.2) H 04/14/18 19:20 INR 1.2 04/14/18 19:20 APTT 35 SECONDS (21-34) H 04/14/18 19:20 - Constitutional Appears: Well - Head Exam Head Exam: ATRAUMATIC, NORMAL INSPECTION, NORMOCEPHALIC - Eye Exam Eye Exam: EOMI, Normal appearance, PERRL Pupil Exam: NORMAL ACCOMODATION, PERRL - ENT Exam ENT Exam: Mucous Membranes Moist, Normal Exam - Neck Exam Neck Exam: Full ROM, Normal Inspection. absent: Lymphadenopathy - Respiratory Exam Respiratory Exam: Decreased Breath Sounds - Cardiovascular Exam Cardiovascular Exam: REGULAR RHYTHM, +S1, +S2 - GI/Abdominal Exam GI & Abdominal Exam: Soft, Diminished Bowel Sounds - Rectal Exam Rectal Exam: Deferred
[2018-04-17 17:57] VITALS: PULSE 115
[2018-04-17] MEDS ORDERED: Digoxin 250 mcg (0.25 mg) Tab PO SCH (18:00)
--- NOTE | 2018-04-18 05:58 | CP.PCM.PN ---
Subjective - Date & Time of Evaluation Date of Evaluation: 04/18/18 Time of Evaluation: 05:57 - Subjective Subjective: PGY-[address] Guillermo's service Pt seen and examined at bedside. Nursing reports no acute events overnight. Cardiac monitoring shows patient rate-controlled overnight. Patient denies chest pain or SOB overnight. Objective - Vital Signs/Intake and Output Vital Signs (last 24 hours): Temp Pulse Resp BP Pulse Ox 97.8 F 84 20 105/72 99 04/18/18 00:37 04/18/18 00:37 04/18/18 00:37 04/18/18 00:37 04/18/18 00:37 - Medications Medications: Current Medications Aspirin (Ecotrin) 325 mg PO DAILY [facility] Last Admin: 04/17/18 10:10 Dose: 325 mg Digoxin (Lanoxin) 0.25 mg PO DAILY@1800 [facility] Last Admin: 04/17/18 17:56 Dose: 0.25 mg Diltiazem HCl (Cardizem) 30 mg PO Q6 [facility] Last Admin: 04/18/18 00:42 Dose: 30 mg Enoxaparin Sodium (Lovenox) 80 mg SC Q12 [facility] Last Admin: 04/17/18 23:25 Dose: 80 mg Metoprolol Tartrate (Lopressor) 50 mg PO BID [facility] Last Admin: 04/17/18 17:56 Dose: 50 mg Yrmnm-9-Rahd Ethyl Esters (Lovaza) 1 gm PO BID [facility] Last Admin: 04/17/18 17:56 Dose: 1 gm Pantoprazole Sodium (Protonix Ec Tab) 40 mg PO DAILY [facility] Last Admin: 04/17/18 10:10 Dose: 40 mg Pneumococcal Polyvalent Vaccine (Pneumovax 23 Vaccine) 0.5 ml IM .ONCE ONE Stop: 04/18/18 10:01 - Labs Labs: 04/17/18 06:11 04/17/18 06:11 PT 13.1 SECONDS (9.7-12.2) H 04/14/18 19:20 INR 1.2 04/14/18 19:20 APTT 35 SECONDS (21-34) H 04/14/18 19:20 - Additional Findings Additional findings: - Constitutional Appears: Non-toxic, No Acute Distress - Head Exam Head Exam: ATRAUMATIC, NORMAL INSPECTION, NORMOCEPHALIC - Eye Exam Eye Exam: EOMI, Normal appearance Pupil Exam: NORMAL ACCOMODATION - ENT Exam ENT Exam: Mucous Membranes Moist - Neck Exam Neck Exam: Full ROM - Respiratory Exam Respiratory Exam: Clear to Ausculation Bilateral, NORMAL BREATHING PATTERN. absent: Rales, Rhonchi, Wheezes - Cardiovascular Exam Cardiovascular Exam: Irregular Rhythm, +S1, +S2 - GI/Abdominal Exam GI & Abdominal Exam: Soft, Normal Bowel Sounds. absent: Guarding, Rigid, Tenderness - Rectal Exam Rectal Exam: Deferred - Extremities Exam Extremities Exam: Full ROM, Normal Capillary Refill, Normal Inspection. absent : Calf Tenderness, Tenderness - Back Exam Back Exam: NORMAL INSPECTION - Neurological Exam Neurological Exam: Alert, Awake, CN II-XII Intact, Oriented x3 - Psychiatric Exam Psychiatric exam: Normal Affect, Normal Mood - Skin Skin Exam: Dry, Normal Color, Warm Assessment and Plan - Assessment and Plan (Free Text) Plan: A/P: Patient is a 37 year old male with no significant past medical history who presented to the ED in Afib with RVR. Paramedics gave him Cardizem 20mg IVP. Patient admitted to telemetry for observation New Onset Afib with RVR Observe on tele Stable, afebrile EKG (04/16/18) Afib, HR 94, No ST/T wave changes Troponins negative x 3 TSH WNL Lipid Panel: TG 110, LDL 110, HDL 22, T chol 148 A1C: 5.2 UTOX positive for amphetamines (of note, patient states that he has been drinking Kratom tea for weight loss for 2 weeks, stopped 3 days ago) Echo (04/16/18): LV function WNL, EF WNL, No wall motion abnormalities [id number] - 0 HASBLED - 0 Metoprolol 50mg PO BID Cardizem 30mg PO Q6H for rate control Digoxin 0.25mg PO Daily Lovenox 80 mg SC Q12H ASA 325mg PO daily Cardiology on consult, Dr. Lopez, help appreciated - Afib perhaps triggered by amphetamine (Kratom) usage - Continue Rate control agents - Consider outpatient cardioversion if he does not spontaneously convert Low HDL HDL 22 Counseled patient by importance of exercise Can start outpatient Fish oil to improve HDL Tobacco abuse Patient smokes 5 cig/day since age 15 Tobacco cessation advised Hypokalemia Resolved GI/DVT ppx: Protonix 40mg PO daily Lovenox 80mg SC Q12H Pt mobile, SCDs not indicated Disposition: Patient rate-controlled on current regimen. Will need to follow up with cardio Dr. Lopez/Eveline for further consideration of cardioversion. Will be discharged on ASA, Digoxin, Cardizem, and Metoprolol per cardio instructions. Tomás Dykes PGY-[address] Guillermo
[2018-04-18 06:48] LABS: BASO % 0.5 % (0.0-2.0); EOS # 0.1 K/uL (0.0-0.7); EOS % 1.5 % (0.0-4.0); HEMOGLOBIN 16.6 g/dL (12.0-18.0); LYMPH # 2.7 K/uL (1.0-4.3); LYMPH % 33.4 % (20.0-40.0); MEAN CELL VOLUME 83.2 fL (80.0-94.0); MEAN CORPUSCULAR HGB CONC 34.8 g/dL (33.0-37.0); MEAN PLATELET VOLUME 9.2 fL (7.2-11.7); MONO # 0.9 K/uL (0.0-0.8); MONO % 10.8 % (0.0-10.0); NEUT # 4.3 K/uL (1.8-7.0); NEUT % 53.8 % (50.0-75.0); NRBC % 0.1 % (0.0-2.0); RBC 5.73 Mil/uL (4.40-5.90)
[2018-04-18 07:27] LABS: ALB/GLOB RATIO 1.3 (1.0-2.1); ALBUMIN 3.8 g/dL (3.5-5.0); ALT/SGPT 33 U/L (21-72); AST/SGOT 31 U/L (17-59); BLOOD UREA NITROGEN 10 mg/dL (9-20); CALCIUM 8.7 mg/dl (8.6-10.4); GFR AFRICAN-AMERICAN > 60; GFR NON-AFRICAN AMERICAN > 60
[2018-04-18 08:20] VITALS: RESP 20
[2018-04-18] MEDS: Aspirin 325 mg EC Tablets PO SCH (09:59)
[2018-04-18] MEDS: Pantoprazole 40 mg EC Tab PO SCH (09:59)
[2018-04-18] MEDS: Omega-3-Acid Ethyl Esters 1 GM Cap PO SCH ×2 (09:59→17:30)
[2018-04-18] MEDS: Enoxaparin 80 mg Syringe SC SCH (09:59)
[2018-04-18] MEDS ORDERED: Pneumococcal 23-Valent Vaccine IM ONE (10:00)
--- NOTE | 2018-04-18 14:49 | CP.PCM.PN ---
Subjective - Date & Time of Evaluation Date of Evaluation: 04/18/18 Time of Evaluation: 14:48 - Subjective Subjective: Still with symptomatic palpitation and RVR NO CP, fevers, chills, N/V Objective - Vital Signs/Intake and Output Vital Signs (last 24 hours): Temp Pulse Resp BP Pulse Ox 97.9 F 93 H 20 93/60 L 97 04/18/18 08:19 04/18/18 08:19 04/18/18 08:19 04/18/18 12:42 04/18/18 08:19 - Medications Medications: Current Medications Amiodarone HCl (Cordarone) 400 mg PO TID [facility] Apixaban (Eliquis) 5 mg PO BID [facility] Metoprolol Tartrate (Lopressor) 50 mg PO BID [facility] Last Admin: 04/18/18 09:59 Dose: 50 mg [id number] Ethyl Esters (Lovaza) 1 gm PO BID [facility] Last Admin: 04/18/18 09:59 Dose: 1 gm Pantoprazole Sodium (Protonix Ec Tab) 40 mg PO DAILY [facility] Last Admin: 04/18/18 09:59 Dose: 40 mg - Labs Labs: 04/18/18 06:38 04/18/18 06:38 PT 13.1 SECONDS (9.7-12.2) H 04/14/18 19:20 INR 1.2 04/14/18 19:20 APTT 35 SECONDS (21-34) H 04/14/18 19:20 - Constitutional Appears: Well - Head Exam Head Exam: ATRAUMATIC, NORMAL INSPECTION, NORMOCEPHALIC - Eye Exam Eye Exam: EOMI, Normal appearance, PERRL - ENT Exam ENT Exam: Mucous Membranes Moist, Normal Exam - Neck Exam Neck Exam: Full ROM - Respiratory Exam Respiratory Exam: Clear to Ausculation Bilateral. absent: Rhonchi, Wheezes - Cardiovascular Exam Cardiovascular Exam: Irregular Rhythm, +S1, +S2 - GI/Abdominal Exam GI & Abdominal Exam: Soft, Normal Bowel Sounds. absent: Tenderness - Extremities Exam Extremities Exam: Full ROM. absent: Calf Tenderness, Pedal Edema - Neurological Exam Neurological Exam: Alert, Awake, Oriented x3 - Skin Skin Exam: Normal Color, Warm Assessment and Plan - Assessment and Plan (Free Text) Assessment: New onset AFIB > probably triggered by amphetamine use low CHADS-VASC score and normal cardiac structure on echo and normal TSH > given labile RVR > d/c digoxin > start eliquis 5mg BID > stop ASA > cont metoprolol and start amiodarone 400 TID > D/C planning in AM and outpatient f/u info given to consider cardioversion if does not spontaneously convert.
--- NOTE | 2018-04-18 20:35 | CP.PCM.PN ---
Subjective - Date & Time of Evaluation Date of Evaluation: 04/18/18 Time of Evaluation: 10:00 - Subjective Subjective: clinically same Objective - Vital Signs/Intake and Output Vital Signs (last 24 hours): Temp Pulse Resp BP Pulse Ox 97.6 F 76 20 106/71 98 04/18/18 16:00 04/18/18 16:40 04/18/18 16:00 04/18/18 16:00 04/18/18 16:00 - Medications Medications: Current Medications Amiodarone HCl (Cordarone) 400 mg PO TID [facility] Last Admin: 04/18/18 17:29 Dose: 400 mg Apixaban (Eliquis) 5 mg PO BID [facility] Last Admin: 04/18/18 17:30 Dose: 5 mg Metoprolol Tartrate (Lopressor) 50 mg PO BID [facility] Last Admin: 04/18/18 17:30 Dose: 50 mg [id number] Ethyl Esters (Lovaza) 1 gm PO BID [facility] Last Admin: 04/18/18 17:30 Dose: 1 gm Pantoprazole Sodium (Protonix Ec Tab) 40 mg PO DAILY [facility] Last Admin: 04/18/18 09:59 Dose: 40 mg - Labs Labs: 04/18/18 06:38 04/18/18 06:38 PT 13.1 SECONDS (9.7-12.2) H 04/14/18 19:20 INR 1.2 04/14/18 19:20 APTT 35 SECONDS (21-34) H 04/14/18 19:20
[2018-04-19 08:10] VITALS: TEMP 98; O2SAT 98
[2018-04-19 10:27] VITALS: BP 107/68; PULSE 79
[2018-04-19] MEDS: Omega-3-Acid Ethyl Esters 1 GM Cap PO SCH (10:27)
[2018-04-19] MEDS: Pantoprazole 40 mg EC Tab PO SCH (10:27)
--- NOTE | 2018-04-19 14:57 | CP.PCM.PN ---
Subjective - Date & Time of Evaluation Date of Evaluation: 04/19/18 Time of Evaluation: 08:30 - Subjective Subjective: clinically same Objective - Vital Signs/Intake and Output Vital Signs (last 24 hours): Temp Pulse Resp BP Pulse Ox 98 F 79 20 107/68 98 04/19/18 08:00 04/19/18 10:27 04/19/18 08:00 04/19/18 10:27 04/19/18 08:00 Intake and Output: 04/19/18 04/19/18 06:59 18:59 Intake Total 800 450 Balance 800 450 - Medications Medications: Current Medications Amiodarone HCl (Cordarone) 400 mg PO TID [facility] Last Admin: 04/19/18 14:03 Dose: 400 mg Apixaban (Eliquis) 5 mg PO BID [facility] Last Admin: 04/19/18 10:27 Dose: 5 mg Metoprolol Tartrate (Lopressor) 50 mg PO BID [facility] Last Admin: 04/19/18 10:27 Dose: 50 mg [id number] Ethyl Esters (Lovaza) 1 gm PO BID [facility] Last Admin: 04/19/18 10:27 Dose: 1 gm Pantoprazole Sodium (Protonix Ec Tab) 40 mg PO DAILY [facility] Last Admin: 04/19/18 10:27 Dose: 40 mg - Labs Labs: 04/18/18 06:38 04/18/18 06:38 PT 13.1 SECONDS (9.7-12.2) H 04/14/18 19:20 INR 1.2 04/14/18 19:20 APTT 35 SECONDS (21-34) H 04/14/18 19:20 - Constitutional Appears: Well - Head Exam Head Exam: ATRAUMATIC, NORMAL INSPECTION, NORMOCEPHALIC - Eye Exam Eye Exam: EOMI, Normal appearance, PERRL Pupil Exam: NORMAL ACCOMODATION, PERRL - ENT Exam ENT Exam: Mucous Membranes Moist, Normal Exam - Neck Exam Neck Exam: Full ROM, Normal Inspection. absent: Lymphadenopathy - Respiratory Exam Respiratory Exam: Decreased Breath Sounds - Cardiovascular Exam Cardiovascular Exam: REGULAR RHYTHM, +S1, +S2 - GI/Abdominal Exam GI & Abdominal Exam: Soft, Diminished Bowel Sounds - Rectal Exam Rectal Exam: Deferred
--- NOTE | 2018-04-19 16:56 | CP.PCM.PN ---
Subjective - Date & Time of Evaluation Date of Evaluation: 04/19/18 Time of Evaluation: 15:00 - Subjective Subjective: FIELD APPRAISER NOTES Patient seen today , denies any chest pain, sob, palpitations, dizziness HR stable D/W Dr. Claire cleared for discharge home today and f/u with Dr. Sifuentes office in 1 week and f/u riley garcia office next Saturday Discharge plan discussed with patient who understands and agrees with plan Objective - Vital Signs/Intake and Output Vital Signs (last 24 hours): Temp Pulse Resp BP Pulse Ox 98 F 79 20 107/68 98 04/19/18 08:00 04/19/18 10:27 04/19/18 08:00 04/19/18 10:27 04/19/18 08:00 Intake and Output: 04/19/18 04/19/18 06:59 18:59 Intake Total 800 450 Balance 800 450 - Labs Labs: 04/18/18 06:38 04/18/18 06:38 PT 13.1 SECONDS (9.7-12.2) H 04/14/18 19:20 INR 1.2 04/14/18 19:20 APTT 35 SECONDS (21-34) H 04/14/18 19:20
== END 2018-04-19 15:04 | disposition home or self-care (01) | DRG 138 ==
LOC: C.ER 18:22 → C.9E 20:21 → C.9I 04-15 12:58 → C.5S 04-17 10:50
PROVIDERS: ADMIT Internal Medicine Nephrology; ATTEND Internal Medicine Nephrology
DX: I48.91 Unspecified atrial fibrillation (principal); E87.6 Hypokalemia; E86.0 Dehydration; F17.200 Nicotine dependence, unspecified, uncomplicated